=== PATIENT | female | born 1970 | race Caucasian/White ===

== ENCOUNTER 2020-02-14 18:01 | Emergency (ER) | payer OTHER ==
[2020-02-14] MEDS ORDERED: Ketorolac 60 MG/2 ML SDV IM ONE (18:22)
[2020-02-14] MEDS ORDERED: Lidocaine 2% Viscous Solution 15 ML Cup TOP ONE (18:22)
[2020-02-14] MEDS ORDERED: Bacitracin Oint 1 GM U/D Packet TOP ONE (18:23)
[2020-02-14] MEDS ORDERED: Diphtheria,Pertussis(Acell),Tetanus Vaccine 0.5 ML SDV IM ONE (18:23)
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
[2020-02-14] MEDS ORDERED: Silver Sulfadiazine 1% Crm 50 GM Tube TOP ONE (19:14)
[2020-02-14] MEDS ORDERED: Ketorolac 10 MG Tab PO ONE (19:26)
== END 2020-02-14 19:46 | disposition home or self-care (01) ==
LOC: JP.ED 18:01
DX: S02.5XXA Fracture of tooth (traumatic), initial encounter for closed fracture (principal); S80.211A Abrasion, right knee, initial encounter; S40.811A Abrasion of right upper arm, initial encounter; S00.81XA Abrasion of other part of head, initial encounter; Z23 Encounter for immunization; Z79.899 Other long term (current) drug therapy; V19.9XXA Pedal cyclist (driver) (passenger) injured in unspecified traffic accident, initial encounter
CPT/HCPCS: 90471; 90715; 99284; A9270